=== PATIENT | female | born 1965 | race Two or more races ===

== ENCOUNTER 2018-08-26 01:27 | Observation (INO) | payer SELFPAY ==
--- NOTE | 2018-08-26 02:01 | ER Document Report ---
ED General - General Chief Complaint: S/S of Possible Stroke Stated Complaint: WEAKNESS Time Seen by Provider: 08/26/18 01:56 Primary Care Provider: KELLI PEARCE MD [ACTIVE STAFF] - Follow up as needed Notes: Patient is a pleasant 53-year-old female presents with complaint of sudden onset of what sounds to be a stroke. Patient says that she was texting her friends and family in [place]. She said she started not be able to text the words that she was thinking her head. She said first she did not really having this coronation of her hand is more that she would think words but was unable to actually texting appropriately. She then went to her and her noticed that her speech was very slurred. They therefore got the car and came here. On the way here her symptoms started to resolve. Symptoms lasted approximately 15 to 20 minutes. She is never had any similar symptoms in the past. She does have a history of seizure disorder for which she takes Depakote. She also is on levothyroxine for thyroid issues. No other complaints at this time. She never had a headache. No chest pain. No shortness of breath. Denies any anxiety or panic. TRAVEL OUTSIDE OF THE [place] IN LAST 30 DAYS: No - Related Data Allergies/Adverse Reactions: No Known Allergies Allergy (Unverified 09/08/11 10:55) Past Medical History - Social History Smoking Status: Never Smoker Frequency of alcohol use: None Drug Abuse: None Family History: Reviewed & Not Pertinent - Past Medical History Cardiac Medical History: Denies: Hx Coronary Artery Disease, Hx Heart Attack, Hx Hypertension Pulmonary Medical History: Denies: Hx Asthma, Hx Bronchitis, Hx COPD, Hx Pneumonia Neurological Medical History: Reports: Hx Seizures - last x many years. Denies: Hx Cerebrovascular Accident Musculoskeletal Medical History: Denies Hx Arthritis Past Surgical History: Denies: Hx Pacemaker - Immunizations Hx Diphtheria, Pertussis, Tetanus Vaccination: No Review of Systems - Review of Systems Notes: My Normal Review Basic REVIEW OF SYSTEMS: CONSTITUTIONAL : Denies fever, chills, or sweats. Denies recent illness. RESPIRATORY: Denies cough, cold, or chest congestion. Denies shortness of breath, difficulty breathing, or wheezing. GASTROINTESTINAL: Denies abdominal pain. Denies nausea, vomiting, or diarrhea. Denies constipation. Last BM: GENITOURINARY: Denies difficulty urinating, painful urination, burning, frequency, or blood in urine. MUSCULOSKELETAL: Denies neck or back pain or joint pain or swelling. SKIN: Denies rash or skin lesions. NEUROLOGICAL: Onset of difficulty forming words through texting and some difficulty coronation of the fingers of the right hand. Also had slurred speech. ALL OTHER SYSTEMS REVIEWED AND NEGATIVE. Physical Exam - Vital signs Vitals: Temp Pulse Resp BP Pulse Ox 98.2 F 97 16 146/84 H 97 08/26/18 01:32 08/26/18 01:32 08/26/18 01:32 08/26/18 01:32 08/26/18 01:32 - Notes Notes: General Appearance: Well nourished, alert, cooperative, no acute distress, no obvious discomfort. Well-appearing. Vitals: reviewed, See vital signs table. Head: no swelling or tenderness to the head Eyes: PERRL, EOMI, Conjuctiva clear Mouth: No decreasd moisture Lungs: No wheezing, No rales, No rhonci, No accessory muscle use, good air exchange bilaterally. Heart: Normal rate, Regular rythm, No murmur, no rub Abdomen: Normal BS, soft, No rigidity, No abdominal tenderness, No guarding, no rebound, no abdominal masses, no organomegaly Extremities: strength 5/5 in all extremities, good pulses in all extremities, no swelling or tenderness in the extremities, no edema. Skin: warm, dry, appropriate color, no rash Neuro: speech clear, oriented x 3, normal affect, responds appropriately to questions. Cranial nerves II through XII are intact. Normal [id number] finger testing. Normal gait. Good strength in all 4 extremities. No focal neurologic deficits on exam. Course - Re-evaluation Re-evalutation: 08/26/18 03:58 Patient is has what appears to be a TIA. Symptoms lasted approximately 15 to 20 minutes. Her ABCD 2 score is 4. She this puts her moderate risk and therefore I consulted the hospitalist, Dr. Stallworth, for admission. He agrees to evaluate the patient for admission. Patient is received aspirin. Her symptoms have remained resolved. She has no further concerns or complaints at this time. She is neurologically intact at this time. CT scan of the head is normal. Dictation of this chart was performed using voice recognition software; therefore, there may be some unintended grammatical errors. - Vital Signs Vital signs: Temp Pulse Resp BP Pulse Ox 98.2 F 75 14 153/90 H 100 08/26/18 01:32 08/26/18 02:03 08/26/18 02:07 08/26/18 02:07 08/26/18 02:07 - Laboratory Result Diagrams: 08/26/18 02:06 08/26/18 02:06 Laboratory results interpreted by me: 08/26/18 08/26/18 02:06 02:06 RBC 2.86 L Hgb 6.9 L Hct 22.2 L MCV 78 L MCH 24.1 L MCHC 31.1 L RDW 17.7 H Eosinophils % 8.4 H Absolute Eosinophils 0.7 H Glucose 111 H AST 40 H - EKG Interpretation by Me Additional EKG results interpreted by me: 08/26/18 02:00 EKG is reviewed and interpreted by me. EKG shows sinus rhythm of [address] segment elevation or depression. No ischemic T wave inversions. MS interval, QRS duration, QT intervals are within normal range. Old EKG available for comparison. Discharge - Discharge Clinical Impression: TIA (transient ischemic attack) Condition: Stable Disposition: ADMITTED OBSERVATION Admitting Provider: Basim (Hospitalist) Unit Admitted: Telemetry Referrals: KELLI PEARCE MD [ACTIVE STAFF] - Follow up as needed
--- NOTE | 2018-08-26 02:09 | RADIOLOGY REPORT (SQ) ---
CT head without contrast on 08/26/2018 at 1:44 AM CLINICAL INDICATION: Slurred speech, decreased function of left arm TECHNIQUE: Multiple axial images are obtained throughout the head without the administration of contrast. This exam was performed according to our departmental dose-optimization program, which includes automated exposure control, adjustment of the mA and/or kV according to patient size and/or use of iterative reconstruction technique. Total DLP is 963.96 mGy*cm. COMPARISON: None FINDINGS: There is no hydrocephalus. There is no CT evidence of acute infarct. There is no hemorrhage. There are no abnormal extra-axial fluid collections. There is no mass, mass effect or midline shift. No bony abnormality is noted. Mucous retention cysts are noted in the maxillary sinuses. IMPRESSION: No acute intracranial abnormality.
[2018-08-26 02:43] LABS: ABSOLUTE BASOPHILS # (AUTO) 0.2 10^3/uL (0.0-0.2); ABSOLUTE EOSINOPHILS # (AUTO) 0.7 10^3/uL (0.0-0.6); ABSOLUTE MONOCYTES (AUTO) 0.6 10^3/uL (0.1-1.4); BASOPHILS % (AUTO) 1.8 % (0-2); EOSINOPHILS % (AUTO) 8.4 % (0-6); HEMATOCRIT 22.2 % (36.0-47.0); LYMPHOCYTES % (AUTO) 35.4 % (13-45); MEAN CORPUSCULAR HEMOGLOBIN 24.1 pg (27.0-33.4); MEAN CORPUSCULAR HGB CONC 31.1 g/dL (32.0-36.0); MEAN CORPUSCULAR VOLUME 78 fl (80-97); MONOCYTES % (AUTO) 6.9 % (3-13); PLATELET COUNT 398 10^3/uL (150-450); RED BLOOD COUNT 2.86 10^6/uL (3.72-5.28); RED CELL DISTRIBUTION WIDTH 17.7 % (11.5-14.0); SEGMENTED NEUTROPHILS % (AUTO) 47.5 % (42-78); TOTAL CELLS COUNTED % (AUTO) 100 %; WHITE BLOOD COUNT 8.5 10^3/uL (4.0-10.5)
[2018-08-26 02:44] LABS: HEMOGLOBIN 6.9 g/dL (12.0-15.5)
[2018-08-26 02:53] LABS: ALANINE AMINOTRANSFERASE 30 U/L (9-52); ALBUMIN 3.8 g/dL (3.5-5.0); ALKALINE PHOSPHATASE 56 U/L (38-126); ANION GAP 10 (5-19); ASPARTATE AMINO TRANSFERASE 40 U/L (14-36); BILIRUBIN,DIRECT 0.2 mg/dL (0.0-0.4); BILIRUBIN,TOTAL 0.4 mg/dL (0.2-1.3); BLOOD UREA NITROGEN 17 mg/dL (7-20); CALCIUM 8.9 mg/dL (8.4-10.2); CARBON DIOXIDE 23 mmol/L (22-30); CHLORIDE 105 mmol/L (98-107); GLUCOSE 111 mg/dL (75-110); POTASSIUM 4.4 mmol/L (3.6-5.0); SODIUM 138.4 mmol/L (137-145)
[2018-08-26 03:10] LABS: INTERNATIONAL RATION (INR) 1.03; PROTHROMBIN TIME 13.5 SEC (11.4-15.4)
[2018-08-26 03:11] LABS: PARTIAL THROMBOPLASTIN TIME 27.8 SEC (23.5-35.8)
[2018-08-26] MEDS ORDERED: ASPIRIN 325 MG TABLET PO ONE (03:55)
[2018-08-26] MEDS ORDERED: ACETAMINOPHEN 325 MG TABLET PO PRN (03:59)
[2018-08-26] MEDS ORDERED: DOCUSATE SODIUM 100 MG CAPSULE PO PRN (03:59)
[2018-08-26] MEDS ORDERED: MAGNESIUM HYDROXIDE SUSP 30 ML UDCUP PO PRN (03:59)
[2018-08-26] MEDS ORDERED: ATORVASTATIN CALCIUM 80 MG TABLET PO ONE (04:15)
[2018-08-26 04:49] LABS: ABSOLUTE RETICS # 0.155 10^6/uL (0.028-0.122); RETICULOCYTE COUNT (AUTO) 5.42 % (0.66-2.85)
[2018-08-26] MEDS ORDERED: ASPIRIN 81 MG TABLET, ENT COATED PO ONE (05:00)
[2018-08-26 05:38] LABS: FERRITIN 8.25 ng/mL (11.1-264.0)
[2018-08-26] MEDS ORDERED: IRON SUCROSE COMPLEX INJ/PF 100 MG/5 ML SDV IV ONE ×2 (05:51→09:00)
--- NOTE | 2018-08-26 06:00 | PDOC H&P ---
History of Present Illness Admission Date/PCP: 08/26/18 04:07 LAMBERTO SALTER PA-C Patient complains of: Slurred speech History of Present Illness: CATALINA GORDON is a 53 year old female with a past medical history of obesity, hypothyroidism, seizure disorder, menorrhagia with blood loss anemia on hormone replacement. Patient presents approximately 1 week of headaches, palpitations developing 30 minutes of expressive aphasia and slurred speech. In the emergen cy room her symptoms have resolved to baseline without tachycardia or fever her work-up is unremarkable and she is referred to the hospitalist for observation. Patient admits recent hormone replacement for menorrhagia. Hemoglobin was 5.5, 10 days ago currently 6.6. She denies vaginal bleeding. Past Medical History Cardiac Medical History: Denies: Coronary Artery Disease, Myocardial Infarction, Hypertension Pulmonary Medical History: Denies: Asthma, Bronchitis, Chronic Obstructive Pulmonary Disease (COPD), Pneumonia Neurological Medical History: Reports: Seizures - last x many years Musculoskeltal Medical History: Denies: Arthritis Hematology: Reports: Anemia Past Surgical History Past Surgical History: Reports: Hysterectomy Denies: Pacemaker Social History Information Source: Patient Smoking Status: Never Smoker Frequency of Alcohol Use: None Hx Recreational Drug Use: No Drugs: None - Advance Directive Resuscitation Status: Full Code Family History Family History: Hypertension Parental Family History Reviewed: Yes Children Family History Reviewed: Yes Sibling(s) Family History Reviewed.: Yes Medication/Allergy Home Medications: Divalproex Sodium [Depakote EC 250 mg Tablet.dr] 250 mg PO BID 09/08/11 Levothyroxine Sodium [Synthroid] 200 mcg PO DAILY 09/08/11 Norethindrone AC-Eth Estradiol [Loestrin] 1 each PO DAILY 09/08/11 Allergies/Adverse Reactions: No Known Allergies Allergy (Unverified 09/08/11 10:55) Review of Systems Constitutional: ABSENT: chills, fever(s), headache(s), weight gain, weight loss Eyes: ABSENT: visual disturbances Ears: ABSENT: hearing changes Cardiovascular: ABSENT: chest pain, dyspnea on exertion, edema, orthropnea, palpitations Respiratory: ABSENT: cough, hemoptysis Gastrointestinal: ABSENT: abdominal pain, constipation, diarrhea, hematemesis, hematochezia, nausea, vomiting Genitourinary: ABSENT: dysuria, hematuria Musculoskeletal: ABSENT: joint swelling Integumentary: ABSENT: rash, wounds Neurological: ABSENT: abnormal gait, abnormal speech, confusion, dizziness, focal weakness, syncope Psychiatric: ABSENT: anxiety, depression, homidical ideation, suicidal ideation Endocrine: ABSENT: cold intolerance, heat intolerance, polydipsia, polyuria Hematologic/Lymphatic: ABSENT: easy bleeding, easy bruising Physical Exam Vital Signs: Temp Pulse Resp BP Pulse Ox 98.2 F 75 20 144/71 H 99 08/26/18 01:32 08/26/18 02:03 08/26/18 04:01 08/26/18 04:01 08/26/18 04:01 Intake & Output 08/24/18 08/25/18 08/26/18 11:59 11:59 11:59 Weight 1118.4 kg General appearance: PRESENT: no acute distress, well-developed, well-nourished Head exam: PRESENT: atraumatic, normocephalic Eye exam: PRESENT: conjunctiva pink, EOMI, PERRLA. ABSENT: scleral icterus Ear exam: PRESENT: normal external ear exam Mouth exam: PRESENT: moist, tongue midline Neck exam: ABSENT: carotid bruit, JVD, lymphadenopathy, thyromegaly Respiratory exam: PRESENT: clear to auscultation braulio. ABSENT: rales, rhonchi, wheezes Cardiovascular exam: PRESENT: RRR. ABSENT: diastolic murmur, rubs, systolic murmur Pulses: PRESENT: normal dorsalis pedis pul Vascular exam: PRESENT: normal capillary refill GI/Abdominal exam: PRESENT: normal bowel sounds, soft. ABSENT: distended, guarding, mass, organolmegaly, rebound, tenderness Rectal exam: PRESENT: deferred Extremities exam: PRESENT: full ROM. ABSENT: calf tenderness, clubbing, pedal edema Neurological exam: PRESENT: alert, awake, oriented to person, oriented to place, oriented to time, oriented to situation, CN II-XII grossly intact. ABSENT: motor sensory deficit Psychiatric exam: PRESENT: appropriate affect, normal mood. ABSENT: homicidal ideation, suicidal ideation Skin exam: PRESENT: dry, intact, warm. ABSENT: cyanosis, rash Results Laboratory Results: 08/26/18 02:06 08/26/18 02:06 08/26/18 08/26/18 08/26/18 02:06 02:06 02:06 WBC 8.5 RBC 2.86 L Hgb 6.9 L Hct 22.2 L MCV 78 L MCH 24.1 L MCHC 31.1 L RDW 17.7 H Plt Count 398 Seg Neutrophils % 47.5 Lymphocytes % 35.4 Monocytes % 6.9 Eosinophils % 8.4 H Basophils % 1.8 Absolute Neutrophils 4.0 Absolute Lymphocytes 3.0 Absolute Monocytes 0.6 Absolute Eosinophils 0.7 H Absolute Basophils 0.2 Retic Count (auto) Absolute Retic Sodium 138.4 Potassium 4.4 Chloride 105 Carbon Dioxide 23 Anion Gap 10 BUN 17 Creatinine 0.84 Est GFR ( Amer) > 60 Est GFR (Non-Af Amer) > 60 Glucose 111 H Calcium 8.9 Iron TIBC % Saturation Ferritin Total Bilirubin 0.4 AST 40 H ALT 30 Alkaline Phosphatase 56 Total Protein 7.0 Albumin 3.8 TSH Blood Type O POSITIVE Antibody Screen NEGATIVE 08/26/18 08/26/18 08/26/18 02:06 02:06 02:06 WBC RBC Hgb Hct MCV MCH MCHC RDW Plt Count Seg Neutrophils % Lymphocytes % Monocytes % Eosinophils % Basophils % Absolute Neutrophils Absolute Lymphocytes Absolute Monocytes Absolute Eosinophils Absolute Basophils Retic Count (auto) 5.42 H Absolute Retic 0.155 H Sodium Potassium Chloride Carbon Dioxide Anion Gap BUN Creatinine Est GFR ( Amer) Est GFR (Non-Af Amer) Glucose Calcium Iron 12.0 L TIBC 520 H % Saturation 2 Ferritin 8.25 L Total Bilirubin AST ALT Alkaline Phosphatase Total Protein Albumin TSH 4.97 H Blood Type Antibody Screen Impressions: Head CT 08/26/18 00:00 IMPRESSION: No acute intracranial abnormality. Assessment and Plan - Diagnosis (1) Anemia Is this a current diagnosis for this admission?: Yes Plan: Microcytic consistent with history and blood loss anemia. Follow-up labs and CBC iron initiated empirically. (2) Hypothyroidism Is this a current diagnosis for this admission?: Yes Plan: No recent dosage change though recent initiation of hormone replacement. She w ill likely require different dosing strategy of both. Follow-up TSH (3) TIA (transient ischemic attack) Is this a current diagnosis for this admission?: Yes Plan: Risk factors with palpitations, thyroid disorder and hormone replacement. Follow-up lipid profile, carotid Doppler, MRI, TSH, sharebroker hold hormone replacement. Continue aspirin and statin - Time Time Spent with patient: 35 or more minutes - Inpatient Certification Medical Necessity: Need Close Monitoring Due to Risk of Patient Decompensation
[2018-08-26 06:12] LABS: FOLATE > 20.00 ng/mL (>2.76)
[2018-08-26] MEDS: HEPARIN SOD (PORCINE) 5,000 UNIT/ML 1 ML SYRINGE SUBCUT SCH ×3 (07:42→21:26)
[2018-08-26] MEDS: LEVOTHYROXINE SODIUM 0.1 MG TABLET PO SCH (08:25)
[2018-08-26] MEDS: DIVALPROEX SODIUM 250 MG TABLET.DR PO SCH ×2 (10:42→17:45)
--- NOTE | 2018-08-26 14:01 | Progress Note ---
Provider Note Provider Note: This is 53 years old female patient with past medical history of obesity, hypothyroidism, chronic back pain and seizure disorder presented with chief complaint of slurred speech, expressive aphasia and left arm tingling sensation. Patient admitted as a case of TIA. Her CT scan of the head is negative and MRI of the brain is done and the result is pending. Accept this patient and I will be her primary attending.
--- NOTE | 2018-08-26 16:04 | RADIOLOGY REPORT (SQ) ---
EXAM DESCRIPTION: CAROTID DOPPLER COMPLETED DATE/TIME: 08/26/2018 3:50 pm REASON FOR STUDY: aphasia COMPARISON: MRI brain 08/26/2018 CT brain 08/26/2018 TECHNIQUE: Grayscale ultrasound, Doppler velocity and spectra, and color Doppler images acquired of the extra-cranial carotid and vertebral arteries. Images stored on PACS. LIMITATIONS: Large patient FINDINGS: RIGHT CAROTID CCA Velocities: Within normal limits. Right common carotid artery peak systolic velocity 0.98 m/sec ICA Velocities Peak systolic 1.0 m/s. End diastolic 0.5 m/s. Proximal ICA/CCA peak systolic ratio 1.5. Spectra normal. No significant plaque. LEFT CAROTID CCA Velocities: Within normal limits. Left common carotid artery peak systolic velocity 0.9 m/sec ICA Velocities Peak systolic 1.2 m/s. End diastolic 0.6 m/s. Proximal ICA/CCA peak systolic ratio normal. Spectra normal. No significant plaque. VERTEBRAL ARTERIES: Antegrade flow. Normal waveforms. SUBCLAVIAN ARTERIES: No finding. OTHER: No other significant finding. IMPRESSION: Limited study. Normal peak systolic velocities and color flow, suggest against any flow significant stenosis at the carotid bifurcations. COMMENT: Quality ID #[id number]: Velocity criteria are extrapolated from the diameter data as defined by t he Society of Radiologists in Ultrasound Consensus Conference. Radiology 2003: 229; 340-346. TECHNICAL DOCUMENTATION: JOB ID: [id number] [employer]- All Rights Reserved Reading location - IP/workstation name: [email or web address]
--- NOTE | 2018-08-26 16:06 | RADIOLOGY REPORT (SQ) ---
EXAM DESCRIPTION: MRI HEAD WITHOUT COMPLETED DATE/TIME: 08/26/2018 10:20 am REASON FOR STUDY: aphasia COMPARISON: CT brain 08/26/2018 TECHNIQUE: Multiplanar imaging includes non-contrasted T1, T2, FLAIR, and diffusion with ADC map seq uences. Images stored on PACS. LIMITATIONS: None. FINDINGS: ANATOMY: No anomalies. Normal vascular flow voids. Pituitary fossa normal. CSF SPACES: Normal in size and contour. No hemorrhage. CEREBRUM: Sulci and gyri normal in size and contour. Normal white matter signal on FLAIR imaging. No evidence of hemorrhage, mass, or extraaxial fluid collection. POSTERIOR FOSSA: No signal alteration. No hemorrhage. No edema, masses or mass effect. Internal becca tory canals, cerebello-pontine angles, mastoids normal. DIFFUSION IMAGING: Negative for acute or sub-acute infarction. ORBITS: No masses. Globes normal. PARANASAL SINUSES: Benign mucus or serous retention cysts in the left sphenoid sinus and bilateral m axillary sinuses OTHER: No other significant finding. IMPRESSION: NORMAL MRI OF THE BRAIN WITHOUT INTRAVENOUS GADOLINIUM CONTRAST. EVIDENCE OF ACUTE STROKE: NO. TECHNICAL DOCUMENTATION: JOB ID: [id number]- All Rights Reserved Reading location - IP/workstation name: [email or web address]
--- NOTE | 2018-08-26 19:15 | EKG REPORT ---
SEVERITY:- BORDERLINE ECG - SINUS RHYTHM PROBABLE LEFT ATRIAL ABNORMALITY : Confirmed by: Ayanna Munoz 26-Aug-2018 19:14:43
[2018-08-26] MEDS ORDERED: ATORVASTATIN CALCIUM 80 MG TABLET PO SCH (22:00)
[2018-08-27] MEDS: HEPARIN SOD (PORCINE) 5,000 UNIT/ML 1 ML SYRINGE SUBCUT SCH (05:26)
[2018-08-27 05:48] LABS: ABSOLUTE BASOPHILS # (AUTO) 0.1 10^3/uL (0.0-0.2); ABSOLUTE EOSINOPHILS # (AUTO) 0.7 10^3/uL (0.0-0.6); ABSOLUTE LYMPHOCYTES (AUTO) 3.7 10^3/uL (0.5-4.7); ABSOLUTE MONOCYTES (AUTO) 0.7 10^3/uL (0.1-1.4); ABSOLUTE NEUT (AUTO) 3.5 10^3/uL (1.7-8.2); HEMATOCRIT 25.3 % (36.0-47.0); LYMPHOCYTES % (AUTO) 42.8 % (13-45); MEAN CORPUSCULAR HEMOGLOBIN 24.4 pg (27.0-33.4); MEAN CORPUSCULAR HGB CONC 30.9 g/dL (32.0-36.0); MEAN CORPUSCULAR VOLUME 79 fl (80-97); MONOCYTES % (AUTO) 7.6 % (3-13); PLATELET COUNT 373 10^3/uL (150-450); SEGMENTED NEUTROPHILS % (AUTO) 40.6 % (42-78); TOTAL CELLS COUNTED % (AUTO) 100 %; WHITE BLOOD COUNT 8.6 10^3/uL (4.0-10.5)
[2018-08-27 05:49] LABS: HEMOGLOBIN 7.8 g/dL (12.0-15.5)
[2018-08-27 06:06] LABS: CHOLESTEROL 113.12 mg/dL (0-200); TRIGLYCERIDES 96 mg/dL (<150)
[2018-08-27 06:16] LABS: DIRECT LDL 69 mg/dL (<100)
--- NOTE | 2018-08-27 08:26 | PDOC DISCHARGE SUMMARY ---
General - Admit/Disc Date/PCP Admission Date/Primary Care Provider: 08/26/18 04:07 LAMBERTO SALTER PA-C Discharge Date: 08/27/18 - Discharge Diagnosis (1) TIA (transient ischemic attack) Is this a current diagnosis for this admission?: Yes (2) Acute on chronic blood loss anemia Is this a current diagnosis for this admission?: Yes (3) Hypothyroidism Is this a current diagnosis for this admission?: Yes (4) Obesity (BMI 30-39.9) Is this a current diagnosis for this admission?: Yes (5) Seizure disorder Is this a current diagnosis for this admission?: Yes - Additional Information Resuscitation Status: Full Code Home Medications: Carisoprodol [Soma 350 mg Tablet] 350 mg PO Q12HP PRN 08/26/18 Divalproex Sodium [Depakote] 500 mg PO DAILY 08/26/18 Ferrous Sulfate [Feosol 325 mg Tablet] 325 mg PO DAILY 08/26/18 Levothyroxine Sodium [Synthroid] 125 mcg PO Q6AM 08/26/18 Medroxyprogesterone Acetate [Provera] 10 mg PO DAILY 08/26/18 History of Present Illness History of Present Illness: CATALINA GORDON is a 53 year old female with a past medical history of obesity, hypothyroidism, seizure disorder, menorrhagia with blood loss anemia on hormone replacement. Patient presents approximately 1 week of headaches, palpitations d eveloping 30 minutes of expressive aphasia and slurred speech. In the emergency room her symptoms have resolved to baseline without tachycardia or fever her work-up is unremarkable and she is referred to the hospitalist for observation. Patient admits recent hormone replacement for menorrhagia. Hemoglobin was 5.5, 10 days ago currently 6.6. She denies vaginal bleeding. Physical Exam Vital Signs: Temp Pulse Resp BP Pulse Ox 97.7 F 80 16 131/48 H 100 08/27/18 07:18 08/27/18 07:18 08/27/18 07:18 08/27/18 07:18 08/27/18 07:18 Intake & Output 08/26/18 08/27/18 08/28/18 06:59 06:59 06:59 Intake Total 1500 Output Total 0 Balance 1500 Weight 117.5 kg 118.9 kg General appearance: PRESENT: morbidly obese Head exam: PRESENT: atraumatic, normocephalic Eye exam: PRESENT: conjunctiva pink, EOMI, PERRLA. ABSENT: scleral icterus Ear exam: PRESENT: normal external ear exam Mouth exam: PRESENT: moist, tongue midline Neck exam: ABSENT: carotid bruit, JVD, lymphadenopathy, thyromegaly Respiratory exam: PRESENT: clear to auscultation braulio. ABSENT: rales, rhonchi, wheezes Cardiovascular exam: PRESENT: RRR. ABSENT: diastolic murmur, rubs, systolic murmur Pulses: PRESENT: normal dorsalis pedis pul Vascular exam: PRESENT: normal capillary refill GI/Abdominal exam: PRESENT: normal bowel sounds, soft. ABSENT: distended, guarding, mass, organolmegaly, rebound, tenderness Rectal exam: PRESENT: deferred Extremities exam: PRESENT: full ROM. ABSENT: calf tenderness, clubbing, pedal edema Neurological exam: PRESENT: alert, awake, oriented to person, oriented to place, oriented to time, oriented to situation, CN II-XII grossly intact. ABSENT: motor sensory deficit Psychiatric exam: PRESENT: appropriate affect, normal mood. ABSENT: homicidal ideation, suicidal ideation Skin exam: PRESENT: dry, intact, warm. ABSENT: cyanosis, rash Results Laboratory Results: 08/27/18 04:50 08/26/18 02:06 08/26/18 08/27/18 08/27/18 02:06 04:50 04:50 WBC 8.6 RBC 3.20 L Hgb 7.8 L Hct 25.3 L MCV 79 L MCH 24.4 L MCHC 30.9 L RDW 18.0 H Plt Count 373 Seg Neutrophils % 40.6 L Lymphocytes % 42.8 Monocytes % 7.6 Eosinophils % 8.0 H Basophils % 1.0 Absolute Neutrophils 3.5 Absolute Lymphocytes 3.7 Absolute Monocytes 0.7 Absolute Eosinophils 0.7 H Absolute Basophils 0.1 Triglycerides 96 Cholesterol 113.12 LDL Cholesterol Direct 69 VLDL Cholesterol 19.0 HDL Cholesterol 35 L Blood Type O POSITIVE Antibody Screen NEGATIVE Impressions: Head CT 08/26/18 00:00 IMPRESSION: No acute intracranial abnormality. Head MRI 08/26/18 00:00 IMPRESSION: NORMAL MRI OF THE BRAIN WITHOUT INTRAVENOUS GADOLINIUM CONTRAST. EVIDENCE OF ACUTE STROKE: NO. Carotid Doppler Study 08/26/18 04:00 IMPRESSION: Limited study. Normal peak systolic velocities and color flow, suggest against any flow significant stenosis at the carotid bifurcations. Qualifiers - * PATIENT BEING DISCHARGED WITH ANY OF THE FOLLOWING DIAGNOSIS: No Acute Heart Failure - Is this a Heart Failure Patient?: No LVEF < 40%?: No- if no continue to question #3 3. Anticoagulant therapy for permanect/persistent/paraoxysmal Afib or Aflutter: N/A
[2018-08-27] MEDS: LEVOTHYROXINE SODIUM 0.1 MG TABLET PO SCH (08:29)
[2018-08-27 08:34] VITALS: BP 130/75
[2018-08-27] MEDS ORDERED: ASPIRIN 81 MG TABLET, ENT COATED PO SCH (10:00)
== END 2018-08-27 09:47 | disposition home or self-care (01) ==
LOC: ER 01:27 → EH 04:07 → 3W 06:29
PROVIDERS: ADMIT Internal Medicine; ATTEND Internal Medicine
PROC: 30233N1 Transfusion of Nonautologous Red Blood Cells into Peripheral Vein, Percutaneous Approach (ICD-10-PCS; principal; 2018-08-26)
DX: G45.9 Transient cerebral ischemic attack, unspecified (principal); D62 Acute posthemorrhagic anemia; D50.0 Iron deficiency anemia secondary to blood loss (chronic); E03.9 Hypothyroidism, unspecified; E66.01 Morbid (severe) obesity due to excess calories; Z68.39 Body mass index [BMI] 39.0-39.9, adult; G40.909 Epilepsy, unspecified, not intractable, without status epilepticus; G89.29 Other chronic pain; M54.9 Dorsalgia, unspecified; N92.0 Excessive and frequent menstruation with regular cycle; Z79.890 Hormone replacement therapy; Z90.710 Acquired absence of both cervix and uterus; Z79.899 Other long term (current) drug therapy
CPT/HCPCS: 93005; 99285; 86900; 86901; 36415 ×2; 36430; 86850; 82607; 82728; 82746; 83540; 83550; 84443; 85025 ×2; 85652; 85610; 85730; 85045; 80053; 86920; 80061; 93880; 70551; 70450; 93010; G0378 ×3; P9016; J1756; J1644 ×2; J3490 ×2